=== PATIENT | female | born 1950 ===

== ENCOUNTER 2025-02-09 10:45 | Inpatient (IN) | payer OTHER ==
[~2025-02-09] VITALS: Ht 157.5 cm; Wt 67.1 kg
[2025-02-13] MEDS ORDERED: MORPHINE SULFATE 4 MG/ML VIAL IV ONE ×2 (12:15→12:45)
[2025-02-13] MEDS ORDERED: LIDOCAINE HCL 1%/EPINEPHRINE 20ML VIAL IJ ONE (12:30)
[2025-02-13] MEDS ORDERED: BUPIVACAINE HCL/PF 0.25% 30ML VIAL InF ONE (12:30)
[2025-02-13] MEDS ORDERED: levoFLOXacin IN DEXTROSE 5 % 5 MG/ML PIGGYBAG IV ONE (12:30)
[2025-02-13] MEDS ORDERED: SUGAMMADEX SODIUM 200 MG/2 ML VIAL IV ONE (12:30)
[2025-02-13] MEDS ORDERED: METRONIDAZOLE/SODIUM CHLORIDE 500 MG/100 ML PIGGYBACK IV ONE (12:30)
[2025-02-13] MEDS ORDERED: ONDANSETRON HCL 2 MG/ML VIAL IV PRN (13:00)
[2025-02-13] MEDS ORDERED: RINGERS SOLUTION,LACTATED 1,000 ML IV SCH (13:00)
[2025-02-13] MEDS ORDERED: SIMETHICONE 125 MG CAPSULE PO SCH (13:00)
[2025-02-13] MEDS ORDERED: MORPHINE SULFATE 4 MG/ML CARTRIDGE IV PRN (13:00)
[2025-02-13] MEDS ORDERED: DEXTROSE 50 % IN WATER 0.5 G/ML VIAL IV PRN (13:00)
[2025-02-13] MEDS ORDERED: OxyCODONE HCL 5 MG TABLET (ROXICODONE) PO PRN (13:00)
[2025-02-13] MEDS ORDERED: HYOSCYAMINE SULFATE 0.125 MG TAB.SUBL SL SCH (13:00)
[2025-02-13 13:21] LABS: BASO % 0.3 % (0.1-1.2); EOS # 0.01 (0.04-0.54); EOS % 0.1 % (0.7-7.0); HEMATOCRIT 37.1 % (34.1-44.9); HEMOGLOBIN 12.7 g/dL (11.2-15.7); LYMPH # 2.37 (1.18-3.74); LYMPH % 15.1 % (19.3-53.1); MEAN CORPUSCULAR HEMOGLOBIN 30.1 pg (25.6-32.2); MONO # 0.69 (0.24-0.82); MONO % 4.4 % (4.7-12.5); NEUT # 12.49 (1.56-6.13); NEUT % 79.7 % (34.0-71.1); PLATELET COUNT 236 K/uL (163-369); RED BLOOD COUNT 4.22 M/uL (3.93-5.22); RED CELL DISTRIBUTION WIDTH 13.2 % (11.6-14.4)
[2025-02-13] MEDS ORDERED: ACETAMINOPHEN 500 MG GEL..CAP PO SCH (14:00)
[2025-02-13] MEDS ORDERED: METOCLOPRAMIDE HCL 5 MG/ML VIAL IV SCH (17:00)
[2025-02-13] MEDS ORDERED: GABAPENTIN 300 MG CAPSULE PO SCH (17:00)
[2025-02-13] MEDS ORDERED: POLYETHYLENE GLYCOL 3350 17 GM BLIST.PACK PO SCH (17:00)
[2025-02-13 18:00] VITALS: BP 168/90; O2SAT 98
[2025-02-13] MEDS ORDERED: FAMOTIDINE/PF 20 MG/2 ML VIAL IV PUSH SCH (21:00)
[2025-02-13] MEDS ORDERED: CELECOXIB 200 MG CAPSULE PO SCH (21:00)
[2025-02-14 01:01] VITALS: BP 122/73; O2SAT 95
[2025-02-14 07:21] LABS: ALBUMIN 3.2 gm/dL (3.4-5.0); CALCIUM 8.7 mg/dL (8.5-10.1); CREATININE SERUM 0.58 mg/dL (0.55-1.02); GFR 101.07; MAGNESIUM 1.7 mg/dL (1.8-2.4); PHOSPHOROUS 3.9 mg/dL (2.5-4.9); POTASSIUM 4.09 mEq/L (3.5-5.1)
[2025-02-14 08:04] VITALS: BP 116/68; O2SAT 96
[2025-02-14 08:18] LABS: RED BLOOD COUNT 4.43 M/uL (3.93-5.22)
[2025-02-14 08:19] LABS: BASO % 0.4 % (0.1-1.2); EOS # 0.04 (0.04-0.54); EOS % 0.3 % (0.7-7.0); HEMATOCRIT 39.2 % (34.1-44.9); HEMOGLOBIN 13.6 g/dL (11.2-15.7); LYMPH # 4.69 (1.18-3.74); LYMPH % 36.9 % (19.3-53.1); MEAN CORPUSCULAR HEMOGLOBIN 30.7 pg (25.6-32.2); MONO # 1.13 (0.24-0.82); MONO % 8.9 % (4.7-12.5); NEUT # 6.76 (1.56-6.13); NEUT % 53.2 % (34.0-71.1); PLATELET COUNT 229 K/uL (163-369)
[2025-02-14] MEDS ORDERED: LACTOBACILLUS ACIDOPHILUS 1 CAP CAP PO SCH (09:00)
[2025-02-14] MEDS ORDERED: MAGNESIUM SULFATE IN WATER 50 ML IV NR (10:00)
[2025-02-14 16:34] VITALS: BP 169/81; O2SAT 100
[2025-02-14] MEDS ORDERED: ENOXAPARIN SODIUM 40 MG/0.4 ML SYRINGE SUBCUTANEO SCH (17:00)
[2025-02-15 01:02] VITALS: BP 185/84; O2SAT 93
[2025-02-15 07:00] LABS: BASO % 0.8 % (0.1-1.2); EOS # 0.13 (0.04-0.54); EOS % 1.1 % (0.7-7.0); HEMATOCRIT 39.7 % (34.1-44.9); HEMOGLOBIN 13.9 g/dL (11.2-15.7); LYMPH # 3.97 (1.18-3.74); MEAN CORPUSCULAR HEMOGLOBIN 30.7 pg (25.6-32.2); MONO # 0.95 (0.24-0.82); MONO % 8.1 % (4.7-12.5); NEUT % 55.7 % (34.0-71.1); PLATELET COUNT 261 K/uL (163-369); RED BLOOD COUNT 4.53 M/uL (3.93-5.22); RED CELL DISTRIBUTION WIDTH 13.2 % (11.6-14.4)
[2025-02-15 07:14] LABS: CALCIUM 8.9 mg/dL (8.5-10.1); CREATININE SERUM 0.53 mg/dL (0.55-1.02); GFR 112.16; MAGNESIUM 2.1 mg/dL (1.8-2.4); PHOSPHOROUS 2.5 mg/dL (2.5-4.9); POTASSIUM 3.92 mEq/L (3.5-5.1)
[2025-02-15 08:14] VITALS: BP 143/92; O2SAT 94
[2025-02-15] MEDS ORDERED: ENOXAPARIN SODIUM 40 MG/0.4 ML SYRINGE SUBCUTANEO SCH (09:00)
[2025-02-15 16:45] VITALS: BP 152/91; O2SAT 94
[2025-02-15] MEDS ORDERED: ROSUVASTATIN CALCIUM 10 MG TABLET PO SCH (17:00)
[2025-02-15 20:40] LABS: ABG PH 7.451 (7.35-7.45); ABG PO2 92.7 mmHg (80-100); BASE EXCESS 1.1 mmol/l; BICARBONATE 24.7 mmol/l (23-25); SaO2 97.6 %; Tco2 25.8 mmol/l; allen test SATISFACTORY; mode ROOM AIR; o2 21 %; puncture site RADIAL LEFT
[2025-02-15 20:41] LABS: ABG pCO2 36.3 mmHg (35-45)
[2025-02-16 00:22] VITALS: BP 147/89; O2SAT 97
[2025-02-16 08:00] VITALS: BP 138/84; O2SAT 98
[2025-02-16] MEDS ORDERED: MENTHOL/CETYLPYRD CL 1 LOZENGE MM SCH (09:00)
[2025-02-16 16:09] VITALS: BP 157/77; O2SAT 98
[2025-02-17 00:49] VITALS: BP 157/82; O2SAT 98
[2025-02-17] MEDS ORDERED: INTESTINEX680 M1 PO (08:37)
[2025-02-17] MEDS ORDERED: LEVSIN/SL0.125 MG SL (08:38)
[2025-02-17 08:55] VITALS: BP 157/88; O2SAT 94
== END 2025-02-17 13:35 | disposition home or self-care (01) | DRG 330 ==
LOC: SURG 02-13 05:00 → O/R 02-13 05:00 → SURH 02-13 07:00 → SURG 02-13 13:15
PROVIDERS: Internal Medicine Geriatric Medicine; ADMIT Surgery; ATTEND Surgery
PROC: 0DBP4ZZ Excision of Rectum, Percutaneous Endoscopic Approach (ICD-10-PCS; 2025-02-13)
PROC: 0DNW4ZZ Release Peritoneum, Percutaneous Endoscopic Approach (ICD-10-PCS; 2025-02-13)
PROC: 0DTJ4ZZ Resection of Appendix, Percutaneous Endoscopic Approach (ICD-10-PCS; 2025-02-13)
PROC: 8E0W4CZ Robotic Assisted Procedure of Trunk Region, Percutaneous Endoscopic Approach (ICD-10-PCS; 2025-02-13)
PROC: 0DJD8ZZ Inspection of Lower Intestinal Tract, Via Natural or Artificial Opening Endoscopic (ICD-10-PCS; 2025-02-13)
PROC: 0DTN4ZZ Resection of Sigmoid Colon, Percutaneous Endoscopic Approach (ICD-10-PCS; principal; 2025-02-13 07:00)
DX: D12.5 Benign neoplasm of sigmoid colon (principal); K92.2 Gastrointestinal hemorrhage, unspecified
CPT/HCPCS: 44207; 44213; 45330; 44180; 44970; S2900